=== PATIENT | female | born 1970 | race Caucasian/White ===

== ENCOUNTER 2018-06-24 16:16 | Emergency (ER) | payer OTHER ==
[~2018-06-24] VITALS: Ht 154.9 cm; Wt 97.5 kg
[2018-06-24] MEDS ORDERED: AUGMENTIN 875-1 EACH PO (17:26)
[2018-06-24 18:00] VITALS: BP 121/70
== END 2018-06-24 18:07 | disposition home or self-care (01) ==
LOC: ER 16:16
DX: H65.92 Unspecified nonsuppurative otitis media, left ear (principal)

== ENCOUNTER 2018-08-25 18:34 | Emergency (ER) | payer OTHER ==
[~2018-08-25] VITALS: Ht 157.5 cm; Wt 113.4 kg
[~2018-08-25 18:34] MED LIST: AUGMENTIN 875-1 EACH PO
[2018-08-25 19:42] LABS: URINE BILIRUBIN NEGATIVE (Negative); URINE BLOOD TRACE (Negative); URINE CLARITY CLEAR; URINE COLOR YELLOW; URINE GLUCOSE-RANDOM* NEGATIVE (Negative); URINE KETONES NEGATIVE (Negative); URINE LEUKOCYTES-REFLEX 1+ (Negative); URINE NITRITE-REFLEX NEGATIVE (Negative); URINE PROTEIN (DIPSTICK) NEGATIVE (Negative); URINE SPECIFIC GRAVITY 1.015 (1.005-1.035); URINE UROBILINOGEN 0.2 E.U./dl (0.2-1.0)
[2018-08-25 19:54] LABS: CASTS None Seen /LPF (None Seen); CRYSTALS None Seen /LPF (None Seen); SQUAMOUS 4-10 Moderate /LPF (0-3); URINE RBC 0-2 Rare /HPF (0-2); URINE WBC-REFLEX 0-5 Rare /HPF (0-5)
[2018-08-25 20:04] LABS: ABSOLUTE NEUTROPHILS 6.6 thou/uL (1.4-8.2); BASOPHILS 0.4 % (0.0-2.0); EOSINOPHILS 1.3 % (0.0-3.0); HEMATOCRIT 42.1 % (37.0-47.0); HEMOGLOBIN 14.3 gm/dL (12.0-15.0); LYMPHOCYTES 7.3 % (24.0-44.0); MCH 30.5 pg (26.0-34.0); MCHC 33.8 g/dL (28.0-37.0); MCV 90.2 fL (80.0-100.0); MONOCYTES 8.1 % (1.0-8.0); PLATELET COUNT 305 thou/uL (150-400); POLYS 82.9 % (36.0-66.0); RBC 4.67 mil/uL (4.20-5.00); RDW 13.1 % (10.5-14.5); WBC 7.9 thou/uL (4.0-11.0)
[2018-08-25 20:07] LABS: CALCIUM 8.6 mg/dL (8.5-10.1); POTASSIUM 3.9 mmol/L (3.5-5.1)
[2018-08-25 20:12] LABS: ALBUMIN 3.9 g/dL (3.4-5.0); TOTAL BILIRUBIN 0.2 mg/dL (<0.1-1.0); TOTAL PROTEIN 8.3 g/dL (6.4-8.2)
[2018-08-25] MEDS ORDERED: OSELB75 PO (21:14)
[2018-08-25] MEDS ORDERED: PROMETH-CODEIN 65 ML PO (21:14)
[2018-08-25 21:40] VITALS: BP 121/64
== END 2018-08-25 21:40 | disposition home or self-care (01) ==
LOC: ER 18:34
PROVIDERS: Physician Assistant
DX: J11.1 Influenza due to unidentified influenza virus with other respiratory manifestations (principal); R00.0 Tachycardia, unspecified